=== PATIENT | female | born 1990 | race Asian ===

== ENCOUNTER 2016-12-27 20:11 | Emergency (ER) | payer MEDICAID ==
[~2016-12-27] VITALS: Ht 160 cm; Wt 53.3 kg
[2016-12-27 20:12] VITALS: BP 145/105
== END 2016-12-27 21:03 | disposition home or self-care (01) ==
LOC: ED 20:57
DX: S40.862A Insect bite (nonvenomous) of left upper arm, initial encounter (principal); R21 Rash and other nonspecific skin eruption; W57.XXXA Bitten or stung by nonvenomous insect and other nonvenomous arthropods, initial encounter; Y93.89 Activity, other specified; Y92.89 Other specified places as the place of occurrence of the external cause; Y99.8 Other external cause status
CPT/HCPCS: 99283

== ENCOUNTER 2019-11-11 04:59 | Emergency (ER) | payer MEDICAID ==
[~2019-11-11] VITALS: Ht 165.1 cm; Wt 70.0 kg
--- NOTE | 2019-11-11 05:43 | NUR ---
SLEEPING QUIETLY, RESP RATE EVEN AND REGULAR, NAD, SPO2 99% RA, CONTINUOUS MONITORING, SIDE RAILS UP TIMES TWO FOR PT SAFETY.
--- NOTE | 2019-11-11 05:48 | NUR ---
AWAKEN VERBAL, SMILES AND LAUGHS. AWAIT SOBRIETY FOR SAFE DISCHARGE.
--- NOTE | 2019-11-11 07:00 | NUR ---
REPORT FROM CARLA ASSUMING CARE OF PT AT THIS TIME
--- NOTE | 2019-11-11 07:52 | NUR ---
PT RESTING ON GIANFRANCO GARCIA, RESP EVEN AND UNLABORED.
[2019-11-11 10:21] VITALS: BP 127/83
== END 2019-11-11 10:26 | disposition home or self-care (01) ==
LOC: ED 10:00
DX: F10.229 Alcohol dependence with intoxication, unspecified (principal); Y90.9 Presence of alcohol in blood, level not specified
CPT/HCPCS: 99285